=== PATIENT | female | born 2000 | race Caucasian/White ===

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

== ENCOUNTER 2019-08-13 09:30 | Emergency (ER) | payer OTHER ==
[~2019-08-13] VITALS: Ht 167.6 cm; Wt 127.0 kg
[~2019-08-13 09:30] MED LIST changes: +NAPROSYN500 MG PO; +NEXPLANON68 MG IMPLANT
[2019-08-13] MEDS ORDERED: MELOXICAM15 MG PO (10:58)
[2019-08-13 11:13] VITALS: BP 141/78
== END 2019-08-13 11:14 | disposition home or self-care (01) ==
LOC: M.ERS 09:30
DX: S93.491A Sprain of other ligament of right ankle, initial encounter (principal); S83.8X1A Sprain of other specified parts of right knee, initial encounter; Z88.0 Allergy status to penicillin; W22.8XXA Striking against or struck by other objects, initial encounter; Y93.89 Activity, other specified; Y92.89 Other specified places as the place of occurrence of the external cause; Y99.8 Other external cause status